=== PATIENT | female | born 1960 | race African-American/Black ===

== ENCOUNTER 2016-10-06 22:46 | Emergency (ER) | payer OTHER ==
[~2016-10-06] VITALS: Ht 167.6 cm; Wt 68.0 kg
[~2016-10-06 22:46] MED LIST: CITA20TA11 PO; CODE1CAP24 PO; DIAZ10TA4 PO; DIAZ5TAB PO; MULT-977 PO; TOPI25TA PO
--- NOTE | 2016-10-07 00:28 | NUR ---
DR. FORTE AT BEDSIDE FOR EVAL.
[2016-10-07] MEDS ORDERED: METOCLOPRAMIDE HCL 10 MG/2 ML VIAL ONE (00:45)
[2016-10-07] MEDS ORDERED: METOCLOPRAMIDE HCL 10 MG/2 ML VIAL IM ONE (00:45)
--- NOTE | 2016-10-07 00:58 | NUR ---
Patient discharged to home in stable conditon. Written and verbal after care instructions given. Patient verbalizes understanding of instructions. PATIENT ACCOMPANIED BY DAUGHTER.
[2016-10-07 00:59] VITALS: BP 147/87
== END 2016-10-07 00:59 | disposition home or self-care (01) ==
LOC: ER 22:47
DX: G43.909 Migraine, unspecified, not intractable, without status migrainosus (principal); F41.9 Anxiety disorder, unspecified; F32.9 Major depressive disorder, single episode, unspecified; Z90.710 Acquired absence of both cervix and uterus
CPT/HCPCS: A4663; J2765